=== PATIENT | female | born 1955 | race Caucasian/White ===

== ENCOUNTER → 2017-09-05 12:26 | Outpatient (CLI) | payer MEDICARE ==
[~2017-09-05 12:26] MED LIST: ATIVAN0.5 MG PO; BACLOFEN10 MG PO; BACTRIM DS TABL1 TAB PO; BAYER CHEWABLE81 MG PO; BUPRENORPHINE HC8 MG SL; ELIQUIS2.5 MG PO; HYDROCHLOROTH12.5 M1 PO; OXYCODONE HCL5 MG PO; RIFADIN300 MG PO; ROCEPHIN 2 GM/D52 G1 IV; VISTARIL50 MG PO; ZESTRIL40 MG PO
[2017-11-10 15:56] VITALS: BMI 31.1
== END | disposition home or self-care (01) ==
LOC: D.RAD 12:26
DX: M53.3 Sacrococcygeal disorders, not elsewhere classified (principal)

== ENCOUNTER → 2017-09-09 09:12 | Outpatient (CLI) | payer MEDICARE ==
[2017-11-10 15:56] VITALS: BMI 31.1
== END | disposition home or self-care (01) ==
LOC: D.MRI 09:00
DX: M25.552 Pain in left hip (principal)

== ENCOUNTER → 2017-09-19 13:47 | Outpatient (CLI) | payer MEDICARE ==
[2017-11-10 15:56] VITALS: BMI 31.1
== END | disposition home or self-care (01) ==
LOC: D.MRI 13:47
DX: M25.552 Pain in left hip (principal); M15.0 Primary generalized (osteo)arthritis

== ENCOUNTER → 2017-09-20 08:58 | Outpatient (CLI) | payer MEDICARE ==
--- NOTE | ~2017-09-20 | HEMODYNAMI ---
PATIENT:FLORIN BROCK MEDICAL RECORD: [id number] : 53 LOCATION:[facility] ADMISSION DATE: 09/20/17 Generatedon:09/20/20179:48 Patient name: FLORIN BROCK Patient #: [id number] SSN: : 1955 Date of study: 09/20/2017 Page: Of Hemodynamic Procedure Report Patient Data Patient Demographics First Name: FLORIN Gender: Female Last Name: DELMY : 1955 Patient #: [id number] Age: 62 year(s) Race: Unknown Additional ID: [id number] Contact details [address]: [address] [place] [address] [address] State: [place] City: [facility] Zip code: [address] Past Medical History Allergies Allergen Reaction Date Comments Reported Penicillins 09/20/2017 Admission Admission Data Admission Date: 09/20/2017 Admission Time: 8:58 Procedure Procedure Types Cath Procedure Peripheral Cath Diagnostic Procedure Miscellaneous Procedure Description Procedure Date Procedure Date: 09/20/2017 Procedure Start Time: 9:34 Procedure Staff Name Function Elian Abel MD Performing Physician Seven [place] RT Monitor Hemodynamics Rest Pre Cath Intra NCS Post Cath Procedure Log Time Note 9:26:47 Time tracking: Regular hours (M-F 7:00 - 5:00) 9:26:51 Seven W[place]ster RT (R) (CV) sent for patient. Start room use. 9:27:05 Patient received from Outpatients to IR Alert and oriented. Tansferred to table in Supine position. 9:27:18 Patient allergic to Penicillins 9:27:47 PT STATES DOES NOT TAKE BLOOD THINNERS 9:28:04 Left groin area was prepped with betadine and draped in sterile fashion 9:33:44 Physician arrived 9:33:46 --------ALL STOP TIME OUT------ 9:33:48 Final Timeout: patient, procedure, and site verified with staff and physician. All members of the team are in agreement. 9:33:52 Left groin site verified by team. 9:33:58 Sedation plan: Local Anesthetic Medication:Lidocaine 9:34:14 Local anesthetic to left GROIN with Lidocaine 1% by Elian Abel MD.INITIAL ACCESS ONLY 9:46:49 Procedure ended.(Physican Out) 9:47:43 VERBAL INSTRUCTIONS GIVEN TO PT. 9:48:24 PT.WAS SENT TO WAITING ROOM FOR 30 MINS AND AT THAT TIME WILL BE SENT HOME Signature Audit [place] Stage Time Signature Unsigned Intra-Procedure 09/20/2017 Seven 9:48:55 AM Ranulfo RT (R) (CV) Signatures Monitor : Seven Signature : Ranulfo RT Date : Time : [address] [address]
[2017-11-10 15:56] VITALS: BMI 31.1
== END | disposition home or self-care (01) ==
LOC: D.SP 08:58 → D.RAD 09:00 → D.SP 09:00
DX: M16.12 Unilateral primary osteoarthritis, left hip (principal); Z01.812 Encounter for preprocedural laboratory examination

== ENCOUNTER 2017-09-27 08:48 | Inpatient (IN) | payer MEDICARE ==
[~2017-09-27] VITALS: Ht 157.5 cm; Wt 79.4 kg
--- NOTE | ~2017-09-27 | OP ---
PATIENT NAME: FLORIN BROCK MEDICAL RECORD: [id number] :53 LOCATION:D.MS [facility].2210 ADMISSION DATE:09/27/17 SURGEON: ELIAN ARRIAGA DO DATE OF OPERATION: 09/28/2017 PROCEDURE PERFORMED: Left total hip arthroplasty. PREOPERATIVE DIAGNOSIS: Left femoral neck fracture. POSTOPERATIVE DIAGNOSIS: Left femoral neck fracture. SURGEON: Elian Arriaga DO INDICATIONS: Ms. Brock is a 62-year-old female who presented to my office last month with complaint of left hip pain. X-rays were taken. No obvious fracture was seen; however, continued to bother her and had been on for the month prior to that got to the point where she was unable to bear weight on it without pain. She got an MRI, which demonstrated the insufficiency fracture of the left femoral neck and I had a long discussion with her, she does smoke and I told her that and we could put cannulated screws in hopes that it would heal, but she would not be able to bear weight on it, but due to the extreme she smokes it would hinder the healing. Also, given the option to do nothing, which she did not want to do, she wants something to be done. She is tired of dealing with the pain. I also gave the option of the total hip where we could take out the fracture part and replace it and she could walk right away and the pain other than surgical pain would subside and she wanted to go with total hip. I fully explained all the risks and benefits of each procedure and she decided that the total hip would be the best thing for her. I agreed with her due to the fact she smokes that the fracture may not heal with cannulated screws and she has been walking around on it for 2 months plus and the pain had been getting worse. She consented to the procedure and aware of the infection, risk for further surgery, femur fracture, damage to the blood vessels and nerves, need for blood transfusion as well. She was okay with. DESCRIPTION OF THE PROCEDURE: The patient was taken to the operative suite, laid in supine position, given general anesthetic. Once the patient was intubated and sedated. She was given a gram of Ancef preoperatively. Then, the left hip was prepped and draped in sterile fashion. Timeout was performed. Everyone was in agreement of correct side, site, and patient. Incision then began on the skin with #10 blade scalpel in an oblique fashion from the ASIS diagonally. Careful dissection was made down at that time to the tensor fascia nereida fascia and the fascia was taken superiorly and muscle belly was taken posteriorly and then the interval of the rectus was found incised and we then opened the interval and encountered the ascending branch of the lateral femoral circumflex, which was coagulated with the Aquamantys. Once the bleeding was coagulated, the femoral neck was felt with a Santiago and Hohmanns were put on either side of the inferior and superior side and then a capsulectomy was done at that time and encountering the fracture. After the capsulotomy was done, a femoral neck cut was made and then, the femoral head was removed from the acetabulum. Trial was then put in due to the labrum was removed from around the acetabulum, it was then medialized and reamed up to 48 on the acetabulum and this was done under fluoroscopy ensuring a good position of the cup. After this was done, a cap was put into place 48 G7 cup with a finned shell and then the femur was exposed externally rotating the leg and extending it and lifting the OPERATIVE REPORT [id number] FLORIN BROCK femur proximally and then the canal finder was used and began to broach up to a #7, trialed that, and broached then to 8 and put an 8 implant in and trialed that with a -3 head and decided to do a -6 head due to the fact that the length would match up better after this was done, the implant was put in and the wound was thoroughly irrigated and all bleeders were coagulated at that time. There were no active bleeders at that time and the Itzel was put into the wound. The tensor fascia nereida fascia was then closed with 0-Vicryl with [id number] and then a running locked stitch and the skin was closed with 2-0 Vicryl in an inverted fashion, 4-0 Monocryl ran on the skin, and Prineo glue placed on the skin. The patient was then awakened and taken to the recovery in stable condition. Blood loss was approximately 200 mL. Complications were none. TRANSINT:[id number] Voice Confirmation ID: [id number] DOCUMENT ID: [id number] ELIAN ARRIAGA DO at 1518 CC: [id number] DICTATION DATE: 09/28/17 1834 ENGINE TESTING SUPERVISOR: 09/28/172020 ADM IN [place] [id number] [place] [id number]
[2017-09-27 09:24] LABS: BASOPHILS 0.2 % (0-2); HEMATOCRIT 42.3 % (36.0-48.0); HEMOGLOBIN 13.8 g/dL (12-16); IMMATURE GRANULOCYTES 0.5 % (0-5); LYMPHOCYTES 15.9 % (15-50); MCH 29.8 pg (26.0-34.0); MCHC 32.6 g/dL (31.0-37.0); MCV 91.4 fL (80.0-100.0); MEAN PLATELET VOLUME 9.9 fL (7.4-10.4); MONOCYTES 8.1 % (2-11); NEUTROPHILS 72.3 % (40-80); PLATELET COUNT 189 10x3/uL (130-400); RBC 4.63 10x6/uL (4.00-5.40); RDW 13.7 % (11.5-14.5); WBC 8.1 10x3/uL (4.8-10.8)
[2017-09-27 09:34] LABS: APTT 27.8 SECONDS (22.8-39.4); INR 1.04 (0.85-1.17); PROTIME 13.2 SECONDS (11.6-15.0)
[2017-09-27 09:36] LABS: ANION GAP 12.5 mmol/L (8-16); CALCIUM 9.5 mg/dL (8.5-10.1); CARBON DIOXIDE 29.8 mmol/L (21.0-32.0); CREATININE - SERUM 1.2 mg/dL (0.6-1.3); POTASSIUM - SERUM 4.3 mmol/L (3.5-5.1)
[2017-09-27 09:38] LABS: APPEARANCE CLEAR (CLEAR); BACTERIA FEW /hpf (NONE SEEN); BILIRUBIN NEGATIVE (NEGATIVE); COLOR YELLOW (YELLOW); EPITHELIAL CELLS 0-5 /hpf (0-5); GLUCOSE NEGATIVE (NEGATIVE); KETONE NEGATIVE (NEGATIVE); NITRITE NEGATIVE (NEGATIVE); PROTEIN NEGATIVE (NEGATIVE); UROBILINOGEN NORMAL (NORMAL); WHITE CELLS - URINE 0-5 /hpf (0-5)
[2017-09-27] MEDS ORDERED: BACLOFEN10 MG PO (10:00)
[2017-09-27] MEDS ORDERED: ZESTRIL40 MG PO (10:00)
[2017-09-27] MEDS ORDERED: BUPRENORPHINE HC8 MG SL (10:01)
[2017-09-27 10:13] VITALS: BP 192/81; BMI 32.1
[2017-09-27 20:00] VITALS: BP 134/70
[2017-09-27 23:59] VITALS: BP 118/54
[2017-09-28] VITALS (8 sets, daily range): BP systolic 134–167; BP diastolic 63–82; Ht 157.5 cm; Wt 79.4 kg
[2017-09-29 04:00] VITALS: BP 113/69
[2017-09-29 06:00] LABS: HEMATOCRIT 36.7 % (36.0-48.0); HEMOGLOBIN 11.9 g/dL (12-16); MCH 29.5 pg (26.0-34.0); MCHC 32.4 g/dL (31.0-37.0); MCV 90.8 fL (80.0-100.0); MEAN PLATELET VOLUME 10.1 fL (7.4-10.4); RBC 4.04 10x6/uL (4.00-5.40); RDW 13.6 % (11.5-14.5); WBC 8.2 10x3/uL (4.8-10.8)
[2017-09-29 09:50] VITALS: BP 108/78
[2017-09-29 13:45] VITALS: BP 118/82
[2017-09-29 18:26] VITALS: BP 150/60
[2017-09-29 20:24] VITALS: BP 139/62
[2017-09-29 23:41] VITALS: BP 113/62
[2017-09-30] VITALS (7 sets, daily range): BP systolic 112–162; BP diastolic 56–91
[2017-09-30 06:35] LABS: HEMATOCRIT 37.5 % (36.0-48.0); HEMOGLOBIN 12.3 g/dL (12-16); MCH 29.8 pg (26.0-34.0); MCHC 32.8 g/dL (31.0-37.0); MCV 90.8 fL (80.0-100.0); MEAN PLATELET VOLUME 10.4 fL (7.4-10.4); RBC 4.13 10x6/uL (4.00-5.40); RDW 13.8 % (11.5-14.5); WBC 7.9 10x3/uL (4.8-10.8)
[2017-10-01 03:57] VITALS: BP 130/57
[2017-10-01 08:49] VITALS: BP 115/39
[2017-10-01 08:52] LABS: HEMATOCRIT 34.3 % (36.0-48.0); HEMOGLOBIN 11.2 g/dL (12-16)
[2017-10-01] MEDS ORDERED: ELIQUIS2.5 MG PO (11:32)
[2017-10-01] MEDS ORDERED: BACTRIM DS TABL1 TAB PO (11:33)
[2017-10-01] MEDS ORDERED: OXYCODONE HCL5 MG PO (11:33)
[2017-10-01] MEDS ORDERED: VISTARIL50 MG PO (11:34)
[2017-10-01 12:38] VITALS: BP 132/57
[2017-11-08] MEDS ORDERED: BAYER CHEWABLE81 MG PO (16:34)
[2017-11-08] MEDS ORDERED: HYDROCHLOROTH12.5 M1 PO (16:35)
== END 2017-10-01 17:44 | disposition home health service (06) | DRG 470 ==
LOC: D.SDCHOLD 08:48 → D.MS 08:48 → D.SDCHOLD 11:00 → D.MS 17:01
PROVIDERS: Anesthesiology; Orthopaedic Surgery
PROC: 0SRB0JZ Replacement of Left Hip Joint with Synthetic Substitute, Open Approach (ICD-10-PCS; principal; 2017-09-28 12:00)
DX: M84.452A Pathological fracture, left femur, initial encounter for fracture (principal); I10 Essential (primary) hypertension; F17.200 Nicotine dependence, unspecified, uncomplicated

== ENCOUNTER → 2017-11-08 13:18 | Outpatient (CLI) | payer MEDICARE, MEDICAID ==
[2017-09-28 10:34] VITALS: BMI 32.0
[2017-11-08 13:24] LABS: BASOPHILS 0.2 % (0-2); EOSINOPHILS 2.4 % (0-7); HEMATOCRIT 33.9 % (36.0-48.0); HEMOGLOBIN 11.3 g/dL (12-16); IMMATURE GRANULOCYTES 0.7 % (0-5); LYMPHOCYTES 14.7 % (15-50); MCH 29.8 pg (26.0-34.0); MCHC 33.3 g/dL (31.0-37.0); MCV 89.4 fL (80.0-100.0); MEAN PLATELET VOLUME 10.4 fL (7.4-10.4); MONOCYTES 14.6 % (2-11); NEUTROPHILS 67.4 % (40-80); RBC 3.79 10x6/uL (4.00-5.40); RDW 13.5 % (11.5-14.5)
[2017-11-08 13:33] LABS: PLATELET COUNT 245 10x3/uL (130-400)
[2017-11-08 15:19] LABS: ERYTHROCYTE SEDIMENTATION RATE 110 mm/hr (0-30)
[2017-11-09 08:08] LABS: HEMOGLOBIN 10.6 g/dL (12-16); MCH 29.3 pg (26.0-34.0); MCHC 33.1 g/dL (31.0-37.0); MCV 88.4 fL (80.0-100.0); MEAN PLATELET VOLUME 9.7 fL (7.4-10.4); RBC 3.62 10x6/uL (4.00-5.40); RDW 13.6 % (11.5-14.5); WBC 12.1 10x3/uL (4.8-10.8)
== END | disposition home or self-care (01) ==
LOC: D.LABREF 13:18
PROVIDERS: Anesthesiology; Nurse Practitioner Family
DX: M25.552 Pain in left hip (principal)

== ENCOUNTER 2017-11-09 07:00 | Inpatient (IN) | payer MEDICARE, MEDICAID ==
[~2017-11-09] VITALS: Ht 157.5 cm; Wt 77.1 kg
[2017-11-09] VITALS (15 sets, daily range): BP systolic 83–137; BP diastolic 41–71; BMI 31.1
--- NOTE | ~2017-11-09 | EC ---
PATIENT:FLORIN BROCK DATE OF SERVICE: 11/09/17 SEX: F MEDICAL RECORD: [id number] DATE OF : 53 LOCATION:D.MS [facility] AGE OF PATIENT: 62 ADMISSION DATE: 11/09/17 REFERRING PHYSICIAN: INTERPRETING PHYSICIAN: CORA HOLCOMB MD ECHOCARDIOGRAM REPORT ECHO CHARGES 4 ECHO COMPLETE Date: 11/10/17 CLINICAL DIAGNOSIS: MURMUR ECHOCARDIOGRAPHIC MEASUREMENTS (adult normal given) AC root (d.<3.7cm) 4.6 cm LV Septum d (<1.2 cm> 1.3 cm Valve Excursion 1.7 cm LV Septum (systole) 1.6 cm Left Atria (s.<4.0cm> 4.1 cm LVPW d(<1.2cm) 1.9 cm RV (d.<2.3cm) 5.5 cm LVPW (sytole) 2.0 cm LV diastole(<5.6CM) 5.7 cm MV E-F(>70mm/sec) cm LV systole 3.1 cm LVOT Diameter 1.9 cm MV exc.(>10mm) 1.6 cm Est.ejection fraction (50-75%) % DOPPLER: LVIT cm/sec A 120 cm/sec E 104 cm/sec LA cm/sec RVSP 40 mmHg LVOT 208 cm/sec AOP1/2T m/s Asc. Ao 141 cm/sec RVOT 115 cm/sec RA cm/sec PA 180 cm/sec AV Gradient Peak 23.31mmHg AV Mean 11.07mmHg AV Area 2.8 cm MV Gradient Peak 9.56 mmHg MV Mean 3.50 mmHg MV Area cm COMMENTS: Automobile Accessories Salesperson: Theron RAMSAY Reptile Farmer: 4 Dr. Holcomb TAPE# PACS Pericardial Effusion N DATE OF SERVICE: PROCEDURE: Transthoracic echocardiogram. FINDINGS: 1. Left ventricle shows evidence of mild left ventricular hypertrophy. Inflow characteristics consistent with diastolic dysfunction. Ejection fraction 60% to 65%. 2. The left atrium is mildly dilated. 3. The aortic valve is not well visualized. Potential bicuspid aortic valve, ECHOCARDIOGRAM REPORT [id number] FLORIN BROCK but the valve widely open, does not appear to have stenosis. There is at least mild aortic regurgitation. We did not get a good look at the aortic root, but on the views we saw the aortic root appears to be normal size. 4. The mitral valve is structurally normal. 5. The tricuspid valve has mild tricuspid regurgitation. 6. The right ventricle is moderately enlarged. 7. The right atrium is moderately enlarged. IMPRESSION: The patient has evidence of hypertensive heart disease and possibly bicuspid aortic valve. May be reasonable to get a better estimation of her aortic root with a CTA. TRANSINT:[id number] Voice Confirmation ID: [id number] DOCUMENT ID: [id number] CORA HOLCOMB MD at 0748 CC: [id number] DICTATION DATE: 11/10/17 1530 MOCCASIN SEWER: 11/10/17 1619 ADM IN [facility] [address] [place] [id number]
--- NOTE | ~2017-11-09 | CN ---
PATIENT NAME:FLORIN BROCK MEDICAL RECORD: [id number] : 53 LOCATION:D.MS [facility]2240 ADMIT DATE: 11/09/17 ACCOUNT: [id number] CONSULTING PHYSICIAN: CORRY DURAN MD REFERRING PHYSICIAN: TIMOTEO ARRIAGA DO DATE OF CONSULTATION: 11/12/2017 DATE OF CONSULTATION: 11/12/2017 REASON FOR CONSULTATION: Hypertension and acute kidney injury with elevated creatinine. HISTORY OF PRESENT ILLNESS: This is a 62-year-old female who was admitted by Dr. Rodas for an infected prosthetic hip. The patient underwent a revision of left total hip arthroplasty with I&D on day of admission. She is going to recovery right now. She has been seen by Dr. Jackson for the infection. She has a PICC line now. Cultures are growing out group B strep. The patient has been on vancomycin as well as other antibiotics for this. The patient has a history of hypertension. PAST MEDICAL HISTORY: Hypertension, overactive bladder, osteoarthritis. PAST SURGICAL HISTORY: She underwent a total knee arthroplasty in 2008, left hip arthroplasty in 09/28/2017, tonsillectomy, now revision of left total hip arthroplasty on 11/09/2017. ALLERGIES: PENICILLIN. HABITS: Current every day smoker. Denies drugs or alcohol. HOME MEDICATIONS: Include lisinopril 40 mg a day, hydrochlorothiazide 12.5 mg a day, Suboxone 3 times a day, baclofen 10 mg twice a day. Medications in the hospital are reviewed. FAMILY HISTORY: Father in an MVA. Mother is alive with hypertension and arthritis. PHYSICAL EXAMINATION: VITAL SIGNS: Shows temperature 98.2, pulse 69, respirations 19, blood pressure is 157/82. Review of her blood pressures; her systolic pressures have been 120s to 140 mostly and diastolic pressures 49 up to 82. GENERAL: She does not appear in acute distress today. HEENT: Grossly within normal limits. NECK: Supple. HEART: Regular rate and rhythm with a loud murmur appreciated. LUNGS: Clear. ABDOMEN: Soft. EXTREMITIES: She has a wound VAC dressing over the left hip. LABORATORY DATA: Blood work today shows CBC with a white count of 8500, hemoglobin 8.7, hematocrit 27. Sodium 140, potassium 4.3, chloride 105, CO2 26.9, BUN 34, creatinine 1.1, now (was 1.4 on 11/10/2017), glucose and calcium are normal. Liver function test is essentially normal. Albumin is little low at 1.9. Wound cultures growing strep group B. CONSULT REPORT [id number] FLORIN BROCK ASSESSMENT: 1. Hypertension. 2. Mild acute kidney injury. 3. Infected prosthetic hip infection. PLAN: Her creatinine has gone back down. We will monitor her blood pressure and her creatinine while she is in the hospital. Thank you for the consult. TRANSINT:[id number] Voice Confirmation ID: [id number] DOCUMENT ID: [id number] CORRY DURAN MD at 1408 CC: [id number] DICTATION DATE: 11/12/17 1026 MICROWAVE ENGINEER: 11/12/17 1058 DIS IN 11/15/17 [place] [id number] [place] [address]
--- NOTE | ~2017-11-09 | OP ---
PATIENT NAME: FLORIN BROCK MEDICAL RECORD: [id number] :53 LOCATION: D.2240 ADMISSION DATE: SURGEON: TIMOTEO ARRIAGA DO DATE OF OPERATION: 11/09/2017 PROCEDURE: Left hip revision with irrigation, debridement and antibiotic bead placement. PREOPERATIVE DIAGNOSIS: Infected left total hip. POSTOPERATIVE DIAGNOSIS: Infected left total hip. INDICATIONS: Ms. Brock is a 62-year-old female who presented to my office yesterday after approximately 4-1/2 to 5 weeks after undergoing a left total hip for a fractured femoral neck. She had jazmine purulence at some spots of the wound and coming out of the inferior pole of the incision. She was consented for the procedure and aware of the risks and benefits including need for further surgery, possible implant removal, and spacer placement if the implants were loose and aware of the risks of not doing surgery as well, but the infection could spread the rest of her body, she get septic and even . She is aware of those risks and aware of the risks of damage to nerves and blood vessels and the need for transfusion and consented to the procedure. DESCRIPTION OF PROCEDURE: The patient was taken to the operative suite and laid in supine position, placed on the [place] table, given general anesthetic and intubated. Antibiotics were held until cultures were taken. The left hip was prepped and draped in sterile fashion. Once the hip was prepped and draped, a timeout was performed. Everyone was in agreement of correct side, site, patient, and procedure. Incision then began over the previous incision. As soon as the incision was made, hematoma drained out of the incision site with some purulence and this was cultured with 3 different cultures and then the tensor fascia nereida was incised. The fascia had more of a dishwater colored liquid came out of that area as well. This area was thoroughly irrigated with 6 liters of normal saline. The hip was then dislocated and the head and neck were removed. The stem was tested and seemed to be very solid, was not loose at all, same with the cup of the acetabulum, it was very solidly fixed. Then 2 liters of Bactisure were used to irrigate the wound using 3 liters of normal saline in between each and then another 2000 liters of normal saline were used after the second bag of Bactisure. Once the implant arrived, it was put back into place and the hip was reduced and that is when the second bag of Bactisure was used and then irrigated after that. Then the antibiotic beads were placed with vancomycin, tobramycin and then the tensor fascia nereida fascia was closed with a Stratafix. A drain was put in deep and brought out through the skin and the skin was closed with inverted interrupted 2-0 Vicryl and 3-0 Monocryl ran on the skin and the Prevena incisional VAC was put over the wound. The patient was awakened and taken to recovery in stable condition. Blood loss approximately 500 mL. Complications were none. TRANSINT:[id number] Voice Confirmation ID: [id number] DOCUMENT ID: [id number] OPERATIVE REPORT [id number] FLORIN BROCK,TIMOTEO Mendiola DO at 1951 CC: [id number] DICTATION DATE: 11/09/17 1314 MATERIAL CARRIER: 11/09/17 1332 [facility] [address] [place] [address]
[~2017-11-09 07:00] MED LIST changes: -ATIVAN0.5 MG PO; -RIFADIN300 MG PO; -ROCEPHIN 2 GM/D52 G1 IV
[2017-11-09 13:30] LABS: BASOPHILS 0.3 % (0-2); HEMATOCRIT 27.9 % (36.0-48.0); HEMOGLOBIN 8.8 g/dL (12-16); LYMPHOCYTES 13.5 % (15-50); MCH 28.6 pg (26.0-34.0); MCHC 31.5 g/dL (31.0-37.0); MEAN PLATELET VOLUME 9.5 fL (7.4-10.4); MONOCYTES 6.5 % (2-11); NEUTROPHILS 76.7 % (40-80); PLATELET COUNT 248 10x3/uL (130-400); RBC 3.08 10x6/uL (4.00-5.40); RDW 13.7 % (11.5-14.5)
[2017-11-09 13:44] LABS: MCV 90.6 fL (80.0-100.0); WBC 15.2 10x3/uL (4.8-10.8)
[2017-11-10] VITALS (7 sets, daily range): BP systolic 87–137; BP diastolic 36–63; Ht 157.5 cm; Wt 77.1 kg
[2017-11-10 05:54] LABS: HEMATOCRIT 20.6 % (36.0-48.0); MCH 28.8 pg (26.0-34.0); MEAN PLATELET VOLUME 9.5 fL (7.4-10.4); PLATELET COUNT 208 10x3/uL (130-400); RDW 14.2 % (11.5-14.5)
[2017-11-10 06:30] LABS: RBC 2.29 10x6/uL (4.00-5.40); WBC 9.8 10x3/uL (4.8-10.8)
[2017-11-10 06:31] LABS: HEMOGLOBIN 6.6 g/dL (12-16)
[2017-11-10 06:42] LABS: ANION GAP 13.2 mmol/L (8-16); CALCIUM 7.3 mg/dL (8.5-10.1); CARBON DIOXIDE 23.2 mmol/L (21.0-32.0); CREATININE - SERUM 1.4 mg/dL (0.6-1.3)
[2017-11-10 06:50] LABS: POTASSIUM - SERUM 5.4 mmol/L (3.5-5.1)
[2017-11-10 06:56] LABS: C-REACTIVE PROTEIN 18.2 mg/dL (0.0-0.9)
[2017-11-10 07:25] LABS: ERYTHROCYTE SEDIMENTATION RATE 75 mm/hr (0-30)
[2017-11-11 05:07] VITALS: BP 124/64
[2017-11-11 05:40] LABS: MCH 29.6 pg (26.0-34.0); MCHC 33.7 g/dL (31.0-37.0); MEAN PLATELET VOLUME 9.1 fL (7.4-10.4); RDW 14.3 % (11.5-14.5); WBC 9.2 10x3/uL (4.8-10.8)
[2017-11-11 05:41] LABS: HEMATOCRIT 26.1 % (36.0-48.0); HEMOGLOBIN 8.8 g/dL (12-16); MCV 87.9 fL (80.0-100.0); RBC 2.97 10x6/uL (4.00-5.40)
[2017-11-11 08:44] VITALS: BP 121/49
[2017-11-11 12:03] VITALS: BP 121/49
[2017-11-11 16:58] VITALS: BP 121/49
[2017-11-11 18:09] VITALS: BP 141/67
[2017-11-11 21:15] VITALS: BP 121/65
[2017-11-12 05:04] VITALS: BP 134/74
[2017-11-12 06:23] LABS: BASOPHILS 0.5 % (0-2); EOSINOPHILS 4.1 % (0-7); HEMOGLOBIN 8.7 g/dL (12-16); LYMPHOCYTES 23.8 % (15-50); MCH 28.8 pg (26.0-34.0); MCHC 32.2 g/dL (31.0-37.0); MCV 89.4 fL (80.0-100.0); MEAN PLATELET VOLUME 9.8 fL (7.4-10.4); MONOCYTES 9.5 % (2-11); NEUTROPHILS 52.1 % (40-80); PLATELET COUNT 234 10x3/uL (130-400); RBC 3.02 10x6/uL (4.00-5.40); RDW 14.5 % (11.5-14.5); WBC 8.5 10x3/uL (4.8-10.8)
[2017-11-12 06:45] LABS: ALBUMIN 1.9 g/dL (3.4-5.0); ANION GAP 12.4 mmol/L (8-16); BILIRUBIN - TOTAL 0.28 mg/dL (0.2-1.3); CALCIUM 8.6 mg/dL (8.5-10.1); CARBON DIOXIDE 26.9 mmol/L (21.0-32.0); CREATININE - SERUM 1.1 mg/dL (0.6-1.3); PROTEIN - SERUM 5.7 g/dL (6.4-8.2); VANCOMYCIN - RANDOM 24.3 ug/mL (10.0-20.0)
[2017-11-12 07:05] LABS: POTASSIUM - SERUM 4.3 mmol/L (3.5-5.1)
[2017-11-12 08:46] VITALS: BP 157/82
[2017-11-12 16:38] VITALS: BP 158/87
[2017-11-12 20:00] VITALS: BP 153/64
[2017-11-13] VITALS: BP 154/85
[2017-11-13 06:04] VITALS: BP 147/89
[2017-11-13 06:37] LABS: ANION GAP 10.7 mmol/L (8-16); CARBON DIOXIDE 30.3 mmol/L (21.0-32.0); CREATININE - SERUM 1.1 mg/dL (0.6-1.3)
[2017-11-13 20:00] VITALS: BP 144/78
[2017-11-14 04:13] LABS: BASOPHILS 0.2 % (0-2); EOSINOPHILS 2.7 % (0-7); HEMATOCRIT 28.4 % (36.0-48.0); HEMOGLOBIN 9.3 g/dL (12-16); IMMATURE GRANULOCYTES 4.2 % (0-5); LYMPHOCYTES 17.3 % (15-50); MCH 28.9 pg (26.0-34.0); MCHC 32.7 g/dL (31.0-37.0); MCV 88.2 fL (80.0-100.0); MEAN PLATELET VOLUME 9.7 fL (7.4-10.4); MONOCYTES 8.5 % (2-11); NEUTROPHILS 67.1 % (40-80); PLATELET COUNT 247 10x3/uL (130-400); RBC 3.22 10x6/uL (4.00-5.40); RDW 13.6 % (11.5-14.5); WBC 9.5 10x3/uL (4.8-10.8)
[2017-11-14 04:25] LABS: ANION GAP 10.2 mmol/L (8-16); C-REACTIVE PROTEIN 8.2 mg/dL (0.0-0.9); CALCIUM 9.1 mg/dL (8.5-10.1); CARBON DIOXIDE 31.7 mmol/L (21.0-32.0); POTASSIUM - SERUM 3.9 mmol/L (3.5-5.1)
[2017-11-14 05:13] LABS: ERYTHROCYTE SEDIMENTATION RATE 19 mm/hr (0-30)
[2017-11-14 06:28] VITALS: BP 133/84
[2017-11-14] MEDS ORDERED: VISTARIL50 MG PO (07:47)
[2017-11-14] MEDS ORDERED: ELIQUIS2.5 MG PO (07:47)
[2017-11-14] MEDS ORDERED: ATIVAN0.5 MG PO (07:48)
[2017-11-14] MEDS ORDERED: OXYCODONE HCL5 MG PO (07:48)
[2017-11-14 09:21] VITALS: BP 149/83
[2017-11-14 11:57] VITALS: BP 119/65
[2017-11-14] MEDS ORDERED: RIFADIN300 MG PO (13:07)
[2017-11-14] MEDS ORDERED: ROCEPHIN 2 GM/D52 G1 IV (13:07)
[2017-11-14 17:49] VITALS: BP 102/90
[2017-11-14 20:00] VITALS: BP 148/74
[2017-11-15 05:48] LABS: ANION GAP 11.5 mmol/L (8-16); CALCIUM 9.2 mg/dL (8.5-10.1); CARBON DIOXIDE 32.2 mmol/L (21.0-32.0); POTASSIUM - SERUM 3.7 mmol/L (3.5-5.1)
[2017-11-15 10:30] VITALS: BP 131/80
[2017-11-15 13:24] VITALS: BP 119/69
== END 2017-11-15 16:35 | disposition home health service (06) | DRG 467 ==
LOC: D.MS 07:00 → D.OPS 07:00 → D.PAN 08:00 → D.OPS 08:00 → D.MS 13:52 → D.OPS 13:53 → D.MS 11-15 16:35
PROVIDERS: Family Medicine; Orthopaedic Surgery; Student in an Organized Health Care Education/Training Program
PROC: 0SRS0JZ Replacement of Left Hip Joint, Femoral Surface with Synthetic Substitute, Open Approach (ICD-10-PCS; principal; 2017-11-09 08:00)
PROC: 0SPS0JZ Removal of Synthetic Substitute from Left Hip Joint, Femoral Surface, Open Approach (ICD-10-PCS; 2017-11-09 08:00)
PROC: 3E0U029 Introduction of Other Anti-infective into Joints, Open Approach (ICD-10-PCS; 2017-11-09 08:00)
PROC: 02HV33Z Insertion of Infusion Device into Superior Vena Cava, Percutaneous Approach (ICD-10-PCS; 2017-11-11)
PROC: B548ZZA Ultrasonography of Superior Vena Cava, Guidance (ICD-10-PCS; 2017-11-11)
DX: T84.52XA Infection and inflammatory reaction due to internal left hip prosthesis, initial encounter (principal); D62 Acute posthemorrhagic anemia; I08.2 Rheumatic disorders of both aortic and tricuspid valves; I10 Essential (primary) hypertension; I11.9 Hypertensive heart disease without heart failure; F17.200 Nicotine dependence, unspecified, uncomplicated; B95.1 Streptococcus, group B, as the cause of diseases classified elsewhere; F41.9 Anxiety disorder, unspecified; I08.3 Combined rheumatic disorders of mitral, aortic and tricuspid valves

== ENCOUNTER → 2017-11-21 14:02 | Outpatient (CLI) | payer MEDICARE, MEDICAID ==
[2017-11-10 15:56] VITALS: BMI 31.1
[~2017-11-21 14:02] MED LIST changes: +ATIVAN0.5 MG PO; +RIFADIN300 MG PO; +ROCEPHIN 2 GM/D52 G1 IV
[2017-11-21 14:12] LABS: BASOPHILS 0.5 % (0-2); EOSINOPHILS 3.8 % (0-7); HEMATOCRIT 29.6 % (36.0-48.0); HEMOGLOBIN 9.3 g/dL (12-16); LYMPHOCYTES 30.7 % (15-50); MCH 28.4 pg (26.0-34.0); MCHC 31.4 g/dL (31.0-37.0); MCV 90.5 fL (80.0-100.0); MEAN PLATELET VOLUME 9.9 fL (7.4-10.4); MONOCYTES 8.9 % (2-11); NEUTROPHILS 55.1 % (40-80); PLATELET COUNT 337 10x3/uL (130-400); RBC 3.27 10x6/uL (4.00-5.40); RDW 13.9 % (11.5-14.5); WBC 6.3 10x3/uL (4.8-10.8)
[2017-11-21 14:21] LABS: C-REACTIVE PROTEIN 3.7 mg/dL (0.0-0.9); CREATININE - SERUM 1.2 mg/dL (0.6-1.3)
[2017-11-21 15:24] LABS: ERYTHROCYTE SEDIMENTATION RATE 111 mm/hr (0-30)
== END | disposition home or self-care (01) ==
LOC: D.LABREF 14:02
PROVIDERS: Student in an Organized Health Care Education/Training Program
DX: T84.52XA Infection and inflammatory reaction due to internal left hip prosthesis, initial encounter (principal)

== ENCOUNTER → 2017-11-28 12:23 | Outpatient (CLI) | payer MEDICARE, MEDICAID ==
[2017-11-10 15:56] VITALS: BMI 31.1
[2017-11-28 14:07] LABS: C-REACTIVE PROTEIN 3.3 mg/dL (0.0-0.9); CREATININE - SERUM 0.9 mg/dL (0.6-1.3)
[2017-11-28 14:08] LABS: BASOPHILS 0.6 % (0-2); EOSINOPHILS 5.3 % (0-7); HEMATOCRIT 31.8 % (36.0-48.0); HEMOGLOBIN 10.1 g/dL (12-16); IMMATURE GRANULOCYTES 0.4 % (0-5); MCH 28.9 pg (26.0-34.0); MCHC 31.8 g/dL (31.0-37.0); MCV 90.9 fL (80.0-100.0); MEAN PLATELET VOLUME 10.3 fL (7.4-10.4); MONOCYTES 9.4 % (2-11); NEUTROPHILS 51.3 % (40-80); PLATELET COUNT 299 10x3/uL (130-400); RDW 14.5 % (11.5-14.5); WBC 5.3 10x3/uL (4.8-10.8)
[2017-11-28 15:30] LABS: ERYTHROCYTE SEDIMENTATION RATE 50 mm/hr (0-30)
== END | disposition home or self-care (01) ==
LOC: D.LABREF 12:23
PROVIDERS: Student in an Organized Health Care Education/Training Program
DX: T84.52XD Infection and inflammatory reaction due to internal left hip prosthesis, subsequent encounter (principal)

== ENCOUNTER → 2017-12-05 13:49 | Outpatient (CLI) | payer MEDICARE, MEDICAID ==
[2017-11-10 15:56] VITALS: BMI 31.1
[2017-12-05 14:16] LABS: BASOPHILS 0.6 % (0-2); EOSINOPHILS 6.5 % (0-7); HEMATOCRIT 32.6 % (36.0-48.0); HEMOGLOBIN 10.5 g/dL (12-16); IMMATURE GRANULOCYTES 0.2 % (0-5); LYMPHOCYTES 28.4 % (15-50); MCHC 32.2 g/dL (31.0-37.0); MCV 90.1 fL (80.0-100.0); MEAN PLATELET VOLUME 10.4 fL (7.4-10.4); MONOCYTES 11.5 % (2-11); NEUTROPHILS 52.8 % (40-80); PLATELET COUNT 260 10x3/uL (130-400); RBC 3.62 10x6/uL (4.00-5.40); RDW 13.9 % (11.5-14.5)
[2017-12-05 14:26] LABS: C-REACTIVE PROTEIN 4.2 mg/dL (0.0-0.9); CREATININE - SERUM 0.9 mg/dL (0.6-1.3)
== END | disposition home or self-care (01) ==
LOC: D.LABREF 13:49
PROVIDERS: Student in an Organized Health Care Education/Training Program
DX: T84.52XD Infection and inflammatory reaction due to internal left hip prosthesis, subsequent encounter (principal)

== ENCOUNTER → 2017-12-12 13:32 | Outpatient (CLI) | payer MEDICARE, MEDICAID ==
[2017-11-10 15:56] VITALS: BMI 31.1
[2017-12-12 14:08] LABS: BASOPHILS 0.4 % (0-2); EOSINOPHILS 6.1 % (0-7); HEMATOCRIT 32.6 % (36.0-48.0); HEMOGLOBIN 10.4 g/dL (12-16); IMMATURE GRANULOCYTES 0.2 % (0-5); LYMPHOCYTES 26.1 % (15-50); MCH 28.7 pg (26.0-34.0); MCHC 31.9 g/dL (31.0-37.0); MCV 89.8 fL (80.0-100.0); MEAN PLATELET VOLUME 10.6 fL (7.4-10.4); MONOCYTES 7.9 % (2-11); NEUTROPHILS 59.3 % (40-80); PLATELET COUNT 236 10x3/uL (130-400); RBC 3.63 10x6/uL (4.00-5.40); WBC 5.6 10x3/uL (4.8-10.8)
[2017-12-12 14:14] LABS: C-REACTIVE PROTEIN 2.1 mg/dL (0.0-0.9)
[2017-12-12 15:12] LABS: ERYTHROCYTE SEDIMENTATION RATE 60 mm/hr (0-30)
== END | disposition home or self-care (01) ==
LOC: D.LABREF 13:32
PROVIDERS: Student in an Organized Health Care Education/Training Program
DX: T84.52XD Infection and inflammatory reaction due to internal left hip prosthesis, subsequent encounter (principal)

== ENCOUNTER → 2017-12-19 11:17 | Outpatient (CLI) | payer MEDICARE, MEDICAID ==
[2017-11-10 15:56] VITALS: BMI 31.1
[2017-12-19 11:46] LABS: BASOPHILS 0.2 % (0-2); EOSINOPHILS 6.6 % (0-7); HEMATOCRIT 33.7 % (36.0-48.0); HEMOGLOBIN 10.9 g/dL (12-16); IMMATURE GRANULOCYTES 0.2 % (0-5); LYMPHOCYTES 29.1 % (15-50); MCH 28.8 pg (26.0-34.0); MCHC 32.3 g/dL (31.0-37.0); MCV 88.9 fL (80.0-100.0); MEAN PLATELET VOLUME 10.7 fL (7.4-10.4); NEUTROPHILS 51.9 % (40-80); PLATELET COUNT 218 10x3/uL (130-400); RBC 3.79 10x6/uL (4.00-5.40); RDW 13.8 % (11.5-14.5); WBC 4.7 10x3/uL (4.8-10.8)
[2017-12-19 11:56] LABS: C-REACTIVE PROTEIN 2.1 mg/dL (0.0-0.9); CREATININE - SERUM 0.9 mg/dL (0.6-1.3)
[2017-12-19 12:47] LABS: ERYTHROCYTE SEDIMENTATION RATE 44 mm/hr (0-30)
== END | disposition home or self-care (01) ==
LOC: D.LABREF 11:17
PROVIDERS: Student in an Organized Health Care Education/Training Program
DX: T81.40XA Infection following a procedure, unspecified, initial encounter (principal)

== ENCOUNTER → 2018-03-15 18:42 | Outpatient (CLI) | payer MEDICARE, MEDICAID ==
[2017-11-10 15:56] VITALS: BMI 31.1
[2018-03-15 18:55] LABS: BASOPHILS 0.6 % (0-2); EOSINOPHILS 5.3 % (0-7); HEMATOCRIT 41.3 % (36.0-48.0); HEMOGLOBIN 13.5 g/dL (12-16); IMMATURE GRANULOCYTES 0.3 % (0-5); MCH 27.6 pg (26.0-34.0); MCHC 32.7 g/dL (31.0-37.0); MCV 84.3 fL (80.0-100.0); MONOCYTES 7.3 % (2-11); NEUTROPHILS 58.5 % (40-80); PLATELET COUNT 189 10x3/uL (130-400); RDW 14.2 % (11.5-14.5)
[2018-03-15 19:17] LABS: CREATININE - SERUM 0.8 mg/dL (0.6-1.3); UREA NITROGEN 19 mg/dL (7-18)
[2018-03-15 19:25] LABS: C-REACTIVE PROTEIN < 0.2 mg/dL (0.0-0.9)
[2018-03-15 19:52] LABS: ERYTHROCYTE SEDIMENTATION RATE 10 mm/hr (0-30)
== END | disposition home or self-care (01) ==
LOC: D.LABREF 18:42
PROVIDERS: Student in an Organized Health Care Education/Training Program
DX: T84.59XD Infection and inflammatory reaction due to other internal joint prosthesis, subsequent encounter (principal)

== ENCOUNTER 2018-06-18 14:10 | Emergency (ER) | payer MEDICARE, MEDICAID ==
[2018-06-18] MEDS ORDERED: VIBRAMYCIN 100100 MG PO (15:53)
[2018-06-18] MEDS ORDERED: VOLTAREN75 MG PO (15:53)
== END 2018-06-18 17:00 | disposition home or self-care (01) ==
LOC: D.ER 14:10
DX: M25.531 Pain in right wrist (principal); R22.31 Localized swelling, mass and lump, right upper limb